=== PATIENT | female | born 1955 | race Caucasian/White ===

== ENCOUNTER → 2016-12-26 | Outpatient (CLI) | payer BC ==
[~2016-12-26] MED LIST: CITA20TA9 PO; METO25TA3 PO
== END | disposition home or self-care (01) ==
LOC: C.LAB1850 11:33
PROVIDERS: ATTEND Physician Assistant
DX: J02.9 Acute pharyngitis, unspecified (principal)

== ENCOUNTER → 2017-04-20 | Outpatient (CLI) | payer BC ==
--- NOTE | 2017-04-21 13:09 | MAMMOGRAPHY REPORT ---
BILATERAL DIGITAL SCREENING MAMMOGRAM TOMOSYNTHESIS WITH CAD: 04/20/2017 CLINICAL HISTORY: Routine screening. TECHNIQUE: Breast tomosynthesis in addition to standard 2D mammography was performed. Current study was also evaluated with a Computer Aided Detection (CAD) system. COMPARISON: Comparison is made to exams dated: 04/16/2016 mammogram, 04/04/2015 mammogram, 04/03/2014 m ammogram, 03/28/2013 mammogram, 09/09/2011 mammogram, and 07/31/2010 mammogram - [facility]. BREAST COMPOSITION: There are scattered areas of fibroglandular density in both breasts. FINDINGS: The parenchymal pattern is similar to prior mammograms. There are stable benign-appearing micro-calcifications in the medial posterior right breast. No developing mass, architectural distor tion or cluster of suspicious microcalcifications is seen in either breast. IMPRESSION: ACR BI-RADS CATEGORY 2: BENIGN There is no mammographic evidence of malignancy. A 1 year screening mammogram is recommended. The pa tient will receive written notification of the results. Approximately 10% of breast cancers are not detected with mammography. A negative mammographic report should not delay biopsy if a clinically suggestive mass is present. Marge Potts M.D. ay/:04/20/2017 16:28:25 Clarity Developer: Margot COCHRAN)(M), [facility] letter sent: Normal 1/2 BI-RADS Code: ACR BI-RADS Category 2: Benign
== END | disposition home or self-care (01) ==
LOC: C.MAMM 16:10
PROVIDERS: ATTEND Obstetrics & Gynecology
DX: Z12.31 Encounter for screening mammogram for malignant neoplasm of breast (principal)

== ENCOUNTER → 2017-05-01 | Outpatient (CLI) | payer BC ==
[2017-05-01 09:29] LABS: BASO % 0.6 %; BASO ABS # 0.03 K/uL (0-0.2); COMPLETE YES; EOS % 5.5 %; HEMATOCRIT 42.8 % (37-47); LYMPH % 36.5 %; LYMPH ABS # 1.87 K/uL (1.2-3.4); MEAN CELL VOLUME 89.2 fL (80-100); MEAN CORPUSCULAR HEMOGLOBIN 30.6 pg (25-34); MEAN CORPUSCULAR HGB CONC 34.3 g/dl (32-36); MEAN PLATELET VOLUME 13.9 fL (7.4-10.4); MONO % 10.2 %; NEUT % 47.2 %; PLATELET COUNT 183 K/uL (130-400); WHITE BLOOD COUNT 5.12 K/uL (4.8-10.8)
[2017-05-01 09:43] LABS: BLOOD UREA NITROGEN 22 mg/dl (7-18); BUN/CREATININE RATIO 23.7 (10-20); CALCIUM 9.3 mg/dl (8.5-10.1); CARBON DIOXIDE 34 mmol/L (21-32); CHLORIDE 97 mmol/L (98-107); CHOLESTEROL 175 mg/dl (0-200); CREATININE 0.93 mg/dl (0.60-1.20); GLUCOSE 93 mg/dl (70-99); POTASSIUM 3.7 mmol/L (3.5-5.1); SODIUM 135 mmol/L (136-145); TRIGLYCERIDES 57 mg/dl (0-150); VERY LOW DENSITY LIPOPROT CALC 11 mg/dl
[2017-05-01 09:53] LABS: CHOLESTEROL/HDL RATIO 2.7; HDL CHOLESTEROL 64 mg/dl; LDL CHOLESTEROL CALCULATED 100 mg/dl
[2017-05-01 09:59] LABS: ESTIMATED AVERAGE GLUCOSE 128 mg/dl; HA1C FLAG Normal (Normal)
== END | disposition home or self-care (01) ==
LOC: C.LAB1850 07:25
PROVIDERS: ATTEND Physician Assistant
DX: I10 Essential (primary) hypertension (principal)

== ENCOUNTER → 2017-12-21 | Outpatient (CLI) | payer OTHER ==
[~2017-12-21] MED LIST changes: +ALPR0.25 PO; +CITA10TA8 PO; -CITA20TA9 PO; +DILT-113 PO; -METO25TA3 PO; +MULT-1092 PO; +SPIR1TAB72 PO
== END | disposition home or self-care (01) ==
LOC: C.PAPS 15:24
PROVIDERS: ATTEND Obstetrics & Gynecology
DX: Z01.419 Encounter for gynecological examination (general) (routine) without abnormal findings (principal)

== ENCOUNTER → 2017-12-31 | Day surgery (SDC) | payer BC, OTHER ==
[2017-12-15 13:06] VITALS: Ht 177.8 cm; Wt 69.5 kg
[~2017-12-31] VITALS: Ht 177.8 cm; Wt 69.5 kg
[~2017-12-31] MED LIST changes: +EpHEDrine SULFATE INJ 50 MG/ML AMP ONE; +LIDOCAINE HCL 2% 2 ML VIAL (20MG/ML) ONE; +PROPOFOL IV EMULSION 10 MG/ML 20 ML VIAL IV ONE; +SODIUM CHLORIDE 0.9% 500ML 500 ML IV ONE
--- NOTE | 2017-12-31 14:54 | Endo History and Physical ---
History & Physical Date of Service: Dec 31, 2017. Chief Complaint: screening Referring Physician: Dr. Weathers History of Present Illness 62 yo CF who presents for screening colonoscopy. Past Surgical History Hx Cardiac Surgery: No Hx Internal Defibrillator: No Hx Pacemaker: No Hx Abdominal Surgery: Yes (WHIPPLE PROCEDURE (BENIGN)) Hx of Implantable Prosthesis: No Hx Post-Op Nausea and Vomiting: No Hx Cancer Surgery: Yes (MELANOMA REMOVED) Hx Thoracic Surgery: No Hx Orthopedic: Yes (CERVICAL DISCECTOMY/FUSION) Hx Urinary Tract Surgery: No Family History None Social History Smoking Status: Former Smoker Hx Substance Use: No Hx Alcohol Use: Yes (1 GLASS OF WINE 2 X WEEKLY) Allergies Coded Allergies: Penicillins (Verified Allergy, Unknown, RASH, 12/15/17) Current Medications Reported Home Medications Medications Dose Route/Sig Max Daily Dose Days Date Category Celexa (Citalopram Hydrobromide) 10 Mg Tab 1 Tab PO DAILY 30 12/31/17 Reported Centrum Silver 50+Women (Multiple Vitamins W/ Minerals) 1 Tab Tab 1 Tab PO QAM 12/15/17 Reported Xanax (Alprazolam) 0.25 Mg Tab 0.25 Mg PO DAILY PRN 12/15/17 Reported Tiazac (Diltiazem HCl) 180 Mg Capcr 180 Mg PO QAM 12/15/17 Reported Spironolactone/Hydrochlor 25-25 mg (HCTZ/Spironolactone) 1 Ea Tab 1 Tab PO BID 12/15/17 Reported Vital Signs Weight (Kilograms): 69.55 Height (Feet): 5 Height (Inches): 10 Date Time Temp Pulse Resp B/P (MAP) Pulse Ox O2 Delivery O2 Flow Rate FiO2 12/31/17 14:12 36.7 74 16 134/85 (101) 97 Room Air Physical Exam General Appearance: WD/WN, no apparent distress Respiratory/Chest: Auscultation: breath sounds normal Cardiovascular: Heart Auscultation: RRR Abdomen: Bowel Sounds: normal Inspection & Palpation: soft, non-distended, no tenderness, guarding & rebound Assessment and Plan Assessment: 62 yo CF who presents for screening colonoscopy. Plan: Proceed with colonoscopy.
--- NOTE | 2017-12-31 16:21 | Anesthesiology Progress Note ---
Anesthesia Post Op Note Date & Time Dec 31, 2017 at 16:21 Vital Signs Pain Intensity: 0 Vital Signs Past 12 Hours Date Time Temp Pulse Resp B/P (MAP) Pulse Ox O2 Delivery O2 Flow Rate FiO2 12/31/17 16:16 75 16 121/81 (94) 100 Room Air 12/31/17 16:01 80 16 106/68 (81) 99 Room Air 12/31/17 14:12 36.7 74 16 134/85 (101) 97 Room Air Notes Mental Status: alert / awake / arousable, participated in evaluation Pt Amnestic to Procedure: Yes Nausea / Vomiting: adequately controlled Pain: adequately controlled Airway Patency, RR, SpO2: stable & adequate BP & HR: stable & adequate Hydration State: stable & adequate Anesthetic Complications: no major complications apparent
--- NOTE | 2017-12-31 16:22 | GI REPORT ---
Procedure Date: 12/31/2017 3:02 PM Procedure: Colonoscopy Indications: Screening for colorectal malignant neoplasm Medicines: Monitored Anesthesia Care Complications: No immediate complications. Estimated Blood Loss: Estimated blood loss: none. Procedure: Pre-Anesthesia Assessment: - Prior to the procedure, a History and Physical was performed, and patient medications and allergies were reviewed. The patient's tolerance of previous anesthesia was also reviewed. The risks and benefits of the procedure and the sedation options and risks were discussed with the patient. All questions were answered, and informed consent was obtained. Prior Anticoagulants: The patient has taken no previous anticoagulant or antiplatelet agents. ASA Grade Assessment: II - A patient with mild systemic disease. After reviewing the risks and benefits, the patient was deemed in satisfactory condition to undergo the procedure. After I obtained informed consent, the scope was passed under direct vision. Throughout the procedure, the patient's blood pressure, pulse, and oxygen saturations were monitored continuously. The scope was introduced through the anus and advanced to the terminal ileum. The colonoscopy was performed without difficulty. The patient tolerated the procedure well. The quality of the bowel preparation was good. The terminal ileum, ileocecal valve, appendiceal orifice, and rectum were photographed. Findings: The perianal and digital rectal examinations were normal. Multiple small-mouthed diverticula were found in the sigmoid colon. Non-bleeding internal hemorrhoids were found during retroflexion. The hemorrhoids were small. Impression: - Diverticulosis in the sigmoid colon. - Non-bleeding internal hemorrhoids. - No specimens collected. Recommendation: - Resume previous diet. - Continue present medications. - Repeat colonoscopy in 10 years for surveillance. - Return to primary care physician as previously scheduled. Elroy Aguayo, 12/31/2017 4:22:22 PM This report has been signed electronically. Note Initiated On: 12/31/2017 3:02 PM I attest to the content of the Intraoperative Record and orders documented therein, exceptions below
[2017-12-31 16:31] VITALS: BP 118/66; PULSE 74; O2SAT 98
--- NOTE | 2017-12-31 16:33 | Discharge Instructions ---
Endoscopy Patient Instructions Date / Procedure(s) Performed Dec 31, 2017. Colonoscopy Allergy Information Coded Allergies: Penicillins (Verified Allergy, Unknown, RASH, 12/31/17) Discharge Date / Findings Dec 31, 2017. Internal hemorrhoids Medication Instructions OK to resume all medications today as prescribed Reported Home Medications Medications Dose Route/Sig Max Daily Dose Days Date Category Celexa (Citalopram Hydrobromide) 10 Mg Tab 1 Tab PO DAILY 30 12/31/17 Reported Centrum Silver 50+Women (Multiple Vitamins W/ Minerals) 1 Tab Tab 1 Tab PO QAM 12/15/17 Reported Xanax (Alprazolam) 0.25 Mg Tab 0.25 Mg PO DAILY PRN 12/15/17 Reported Tiazac (Diltiazem HCl) 180 Mg Capcr 180 Mg PO QAM 12/15/17 Reported Spironolactone/Hydrochlor 25-25 mg (HCTZ/Spironolactone) 1 Ea Tab 1 Tab PO BID 12/15/17 Reported Provider Instructions Activity Restrictions - No exercising or heavy lifting for 24 hours. - Do not drink alcohol the day of the procedure. - Do not drive a car or operate machinery until the day after the procedure. - Do not make any important decisions or sign important papers in 24 hours after the procedure. Following Day: - Return to full activity which may include returning to work/school. Diet Start your diet with liquids and light foods (jello, soup, juice, toast). Then eat your usual diet if not nauseated. Treatment For Common After Affects For mild abdominal pain, bloating, or excessive gas: - Rest - Eat lightly - Lie on right side Follow-Up Information Follow-up with Dr. Weathers as scheduled Anesthesia Information What You Should Know You have had a procedure that required some medicine to reduce anxiety and discomfort. This treatment is called moderate sedation. After receiving the treatment, you may be sleepy, but you will be able to breathe on your own. The effects of the treatment may last for several hours. Follow these instructions along with Activity/Diet recommendations noted above: * Do NOT do anything where dizziness or clumsiness would be dangerous. * Rest quietly at home today, then you can be up and about tomorrow. * Have a responsible person stay with you the rest of today. * You may have had an I.V. today. If so, you may take the dressing off later today. Recommendations Call your doctor if: * Trouble breathing * Continuous vomiting for more than 24 hours * Temperature above 101 degrees * Severe abdominal pain or bloating * Pain not relieved by pain medicine ordered * There is increased drainage or redness from any incision * A large amount of rectal bleeding greater than 2-3 tablespoons. (If you had a polyp/s removed or have hemorrhoids, a small amount of blood - from the rectum is to be expected.) * You have any unanswered questions or concerns. IN THE EVENT OF A SERIOUS EMERGENCY, GO TO THE NEAREST EMERGENCY ROOM Your discharge instructions were prepared by provider Elroy Aguayo. Patient Instructions Signature Page Riddhi Snow Patient (or Guardian) Signature/Date: I have read and understand the instructions given to me by my caregivers. Caregiver/RN/Doctor Signature/Date: The above-named patient and/or guardian has received patient instructions on this date. + Original Patient Signature Page (only) stays with chart. Please make copy for patient.
== END | disposition home or self-care (01) ==
LOC: C.GI 13:53
PROVIDERS: ATTEND Internal Medicine
DX: Z12.11 Encounter for screening for malignant neoplasm of colon (principal); K57.30 Diverticulosis of large intestine without perforation or abscess without bleeding; K64.8 Other hemorrhoids; I10 Essential (primary) hypertension; F41.9 Anxiety disorder, unspecified; Z85.820 Personal history of malignant melanoma of skin; Z98.1 Arthrodesis status; Z87.891 Personal history of nicotine dependence; Z88.0 Allergy status to penicillin; Z79.899 Other long term (current) drug therapy